=== PATIENT | male | born 1975 | race Caucasian/White ===

== ENCOUNTER 2017-01-17 19:20 | Emergency (ER) | payer BC, MEDICAID, OTHER ==
[2017-01-17] MEDS ORDERED: Sodium Chloride 0.9% 10 ML Syringe FLUSH PRN (19:37)
[2017-01-17] MEDS ORDERED: Sodium Chloride 0.9% 1,000 ML IV ONE (19:37)
[2017-01-17] MEDS ORDERED: Morphine 4 MG/ML Syringe IVPUSH ONE (19:51)
[2017-01-17] MEDS ORDERED: Ondansetron 4 MG/2 ML SDV IVPUSH ONE (19:51)
[2017-01-17] MEDS ORDERED: Ketorolac 30 MG/ML SDV IVPUSH ONE (19:51)
[2017-01-17 20:04] LABS: CHLORIDE,CL 102 mmol/L (98-107); SODIUM,NA 140 mmol/L (136-145)
[2017-01-17] MEDS ORDERED: Iopamidol 612 MG/ML 100 ML Bottle IVPUSH ONE (20:50)
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
[2017-01-18 01:14] VITALS: BP 131/84
== END 2017-01-17 22:12 | disposition home or self-care (01) ==
LOC: LL.ED 19:20
DX: S50.11XA Contusion of right forearm, initial encounter (principal); Z79.899 Other long term (current) drug therapy; X58.XXXA Exposure to other specified factors, initial encounter
CPT/HCPCS: 36415; 70450; 71260; 72125; 73090; 74177; 80053; 85025; 96361; 96374; 96375; 99291; 99292; G0480; J1885; J2270; J2405; J7030; Q9967

== ENCOUNTER 2017-11-16 07:25 | Emergency (ER) | payer MEDICAID ==
[2017-11-16 07:41] VITALS: BP 116/82
--- NOTE | 2017-11-16 07:41 | EDM.PDOC ---
ED HPI GENERAL MEDICAL PROBLEM - General Chief Complaint: Back Pain or Injury Stated Complaint: fall Time Seen by Provider: 11/16/17 07:35 Source of Information: Reports: Patient, Family (Mother), Old Records ([facility] chart/EMR) History Limitations: Reports: No Limitations - History of Present Illness INITIAL COMMENTS - FREE TEXT/NARRATIVE: The patient was brought to the emergency room via private automobile by his mother for evaluation of exacerbation of his chronic low back pain, which is mostly present in the lower lumbar and upper sacral region. He was at his niece' s home when he slipped on the ice at about 08:00 a.m. this morning landing on his lower back with no history of head injury, loss of consciousness, change in mental status, paresthesias, neurological deficits, neck pain, or other complaints or injuries. He has not taken any medications or performed any treatment to this point. The patient denies any chest pain/pressure, heart flutter, dizziness, orthostasis, orthopnea, diaphoresis, paresthesias, recent decreased exercise tolerance, or any other anginal-type symptoms. No recent history of abdominal pain, heartburn, nausea, diarrhea, melena, gross hematochezia, or any food intolerance, including fatty foods, etc.. The patient also denies any recent fever, cough, wheezing, dyspnea, etc.. Patient did take his medications this morning. Onset: Today, Sudden, Gradual Onset Date: 11/16/17 Onset Time: 08:00 Duration: Chronic Location: Reports: Back. Denies: Head, Face, Neck, Chest, Abdomen, Pelvis, Upper Extremity, Left, Upper Extremity, Right, Lower Extremity, Left Quality: Reports: Same as Previous Episode, Sharp, Stabbing Severity: Moderate Improves with: Reports: Rest Worsens with: Reports: Movement Context: Reports: Trauma (As above) Associated Symptoms: Denies: Confusion, Chest Pain, Cough, Diaphoresis, Fever/ Chills, Headaches, Loss of Appetite, Malaise, Nausea/Vomiting, Shortness of Breath, Syncope, Weakness Treatments BEEF TRIMMER: Reports: Other (see below) (None) Lower Back Pain Score (Numeric/FACES): 7 - Related Data Allergies Allergy/AdvReac Type Severity Reaction Status Date / Time No Known Allergies Allergy Verified 11/16/17 07:30 Home Meds: Home Meds Escitalopram Oxalate 10 mg PO DAILY 11/16/17 [History] Meloxicam 15 mg PO DAILY 11/16/17 [History] Multivitamin [Multivitamins] 1 cap PO DAILY 11/16/17 [History] lamoTRIgine [Lamotrigine] 100 mg PO BID 11/16/17 [History] Past Medical History HEENT History: Reports: Allergic Rhinitis. Denies: Hard of Hearing, Impaired Vision, Retinal Detachment Cardiovascular History: Reports: Arrhythmia, Other (See Below) Other Cardiovascular History: Complete right bundle branch block, PVCs Respiratory History: Reports: Sleep Apnea, Other (See Below) Other Respiratory History: Moderate obstructive sleep apnea with patient not using CPAP Gastrointestinal History: Reports: Gastritis, GERD Musculoskeletal History: Reports: Back Pain, Chronic, Fracture, Neck Pain, Chronic, Osteoarthritis, Other (See Below) Other Musculoskeletal History: C5-C6 fracture in about June 2013 with questionable right radial styloid fracture on 03/19/08 Psychiatric History: Reports: ADD, ADHD, Addiction, Anxiety, Bipolar, Depression , Other (See Below) Other Psychiatric History: Previous history of alcohol abuse as below with additional possible narcotic overuse - Past Surgical History Neurological Surgical History: Reports: C-Spine, Spinal Fusion, Other (See Below ). Denies: Lumbar Spine, Vertebroplasty Other Neurological Surgeries/Procedures: C5-C6 fixation in about June 2013 Musculoskeletal Surgical History: Reports: Arthroscopic Procedure, Shoulder Surgery, Other (See Below) Other Musculoskeletal Surgeries/Procedures:: 3 left shoulder arthroscopic surgeries with last surgery in about 2010 - Past Imaging History Past Imaging History: Reports: Bone Scan (06/25/11), CAT Scan (Last CT of the brain on 07/03/10 with previous evaluation on 04/05/09), MRI (Last MRI of the C- spine on 05/16/13 and the lumbar spine on 08/27/10), Sleep Study (12/02/11), Stress Testing (Cardiolite stress test on 07/12/14) Social & Family History - Family History Cardiac: Reports: CAD, GA, Other (See Below) Other Cardiac Family History: Father with history of recurrent MIs since his 40s with fatal GA in his 60s. Paternal uncle with fatal GA in his 40s. Another paternal uncle with an GA. Maternal grandfather with history of fatal GA in his 60s with additional history of CABG. 2 maternal uncles with fatal GA in their 60s. - Tobacco Use Smoking Status *Q: Current Every Day Smoker Tobacco Use Within Last Twelve Months: Cigarettes Years of Tobacco use: 26 Packs/Tins Daily: 0.7 (Previous maximum use of 23 packs per day with patient started smoking at about age 16) Used Tobacco, but Quit: Yes Smoking Cessation Information Provided To Patient: Yes Second Hand Smoke Exposure: No Second Hand Smoke Education Provided: No - Alcohol Use Alcohol Use History: Yes Days Per Week of Alcohol Use: 0 (Previous history of alcohol abuse with no apparent treatment) Number of Drinks Per Day: 3 (Usually beer every 2 months) Total Drinks Per Week: 0 Alcohol Use in Last Twelve Months: Yes Alcohol Use Frequency: Rarely, Socially - Recreational Drug Use Recreational Drug Use: No Drug Use in Last 12 Months: No - Living Situation & Occupation Living situation: Reports: (Although divorce proceedings are currently in effect) 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 ED EXAM,LOWER BACK PAIN/INJURY - Physical Exam Exam: See Below Exam Limited By: No Limitations General Appearance: Alert, WD/WN, No Apparent Distress, Anxious (Moderate) Head: Atraumatic, Normocephalic. No: Facial Swelling, Facial Tenderness, Sinus Tenderness Neck: Normal Inspection, Supple, Non-Tender, Full Range of Motion. No: Lymphadenopathy (L), Lymphadenopathy (R), Thyromegaly Respiratory/Chest: No Respiratory Distress, Lungs Clear, Normal Breath Sounds, No Accessory Muscle Use, Chest Non-Tender. No: Pleural Rub, Retractions Cardiovascular: Normal Peripheral Pulses, Regular Rate, Rhythm, No Edema, No Gallop, No JVD, No Murmur, No Rub. No: Gallop/S3, Gallop/S4, Friction Rub GI/Abdominal: Normal Bowel Sounds, Soft, Non-Tender, No Organomegaly, No Distention, No Abnormal Bruit, No Mass, Pelvis Stable. No: Guarding (Male) Exam: Deferred Rectal (Males) Exam: Deferred Back Exam: Decreased Range of Motion (Mild secondary discomfort), Muscle Spasm ( Mild lower lumbar upper sacral left-sided), Paraspinal Tenderness (Mild to moderate left lower and upper sacral). No: CVA Tenderness (L), CVA Tenderness ( R), Vertebral Tenderness Extremities: Normal Inspection, Normal Range of Motion, Non-Tender, No Pedal Edema, Normal Capillary Refill Neurological: Alert, Normal Mood/Affect, Normal Dorsiflexion, CN II-XII Intact, Normal Plantar Flexion, Normal Gait, Normal Reflexes, No Motor/Sensory Deficits , Oriented x 3 Psychiatric: Anxious (Moderate with patient becoming combative and confrontational at the end of ER visit as below), Depressed Mood (Adequate eye contact) Skin Exam: Warm, Dry, Intact, Normal Color, No Rash. No: Diaphoretic Lymphatic: No Adenopathy Course - Vital Signs Last Recorded V/S: Last Vital Signs Temp 36.4 C 11/16/17 07:25 Pulse 102 H 11/16/17 07:25 Resp 18 11/16/17 07:25 BP 116/82 11/16/17 07:25 Pulse Ox 95 11/16/17 07:25 Vital Signs - 24 hr 11/16/17 07:25 Temperature [ 36.4 C Oral] Pulse, 102 H Peripheral [ Right Pulse Oximetry] Respiratory 18 Rate Blood Pressure 116/82 [Right Upper Arm] O2 Sat by Pulse 95 Oximetry - Orders/Labs/Meds Orders: Active Orders 24 hr Category Date Time Status Lumbar Spine 2 or 3V [CR] Stat Exams 11/16/17 07:41 Taken Obtain Past Medical Record [OM.PC] Routine Oth 11/16/17 07:41 Active Labs: None Meds: Medications Discontinued Medications Generic Name Dose Route Start Last Admin Trade Name Mauricioq PRN Reason Stop Dose Admin Ketorolac Tromethamine 60 mg 11/16/17 08:01 Toradol IM 11/16/17 08:02 ONETIME ONE Not given secondary to patient leaving AMA as below - Radiology Interpretation Free Text/Narrative:: X-rays of the lumbar spine, 3 views, shows evidence of mild decreased lordosis of the lumbar spine with additional mild to moderate osteoarthritic changes including spur formation, however no acute fracture or dislocation, etc. Departure - Departure Time of Disposition: 08:10 Disposition: Against Medical Advice 07 Condition: Good Clinical Impression: Bipolar 1 disorder, Tobacco abuse counseling Low back pain Qualifiers: Chronicity: acute Back pain laterality: left Sciatica presence: without sciatica Qualified Code(s): M54.5 - Low back pain Osteoarthritis Qualifiers: Osteoarthritis location: multiple joints Osteoarthritis type: primary Qualified Code(s): M15.0 - Primary generalized (osteo)arthritis - Discharge Information Instructions: Muscle Strain, [id number], Back Pain, Adult, [id number] Referrals: Key Ye, ASSISTANT PRODUCER [Primary Care Provider] - Forms: ED Department Discharge Additional Instructions: 1. Follow up with your regular provider in 10-14 days as needed, if symptoms persist. 2. BenGay or equivalent, heating pad, and/or ice packs as directed. 3. Tylenol 650 mg by mouth every 4 hours and/or OTC ibuprofen 2-3 tabs by mouth every 6 hours with food as directed./needed. Next dose of ibuprofen in 6 hours as needed secondary to medications given in the emergency room. 4. Stop all tobacco use KAVON as directed/per provided information and consider contacting Quit LIne, etc.. - Problem List & Annotations (1) Low back pain SNOMED Code(s): 456798534 Code(s): M54.5 - LOW BACK PAIN Status: Acute Priority: High Current Visit: Yes Onset Date: 11/16/17 Annotation/Comment:: Exacerbation of his chronic low back pain as above. Toradol initially ordered as above, however patient left AMA prior to administration of this medication. Note that discharge instructions were discussed with the patient by me prior to his episode of confrontation as below, however he did leave without receiving the written copy of these instructions. Qualifiers: Chronicity: acute Back pain laterality: left Sciatica presence: without sciatica Qualified Code(s): M54.5 - Low back pain (2) Bipolar 1 disorder SNOMED Code(s): 457897727 Code(s): F31.9 - BIPOLAR DISORDER, UNSPECIFIED Status: Chronic Priority: Medium Current Visit: Yes Annotation/Comment:: Moderate control by today's evaluation. Patient was very combative and confrontational when I was dictating his previous history concerning his previous alcohol abuse, narcotic use, etc., which was obtained from his previous medical records. He did leave the emergency room AMA. Continue close follow-up by his regular provider Note additional history of ADHD (3) Osteoarthritis SNOMED Code(s): 792520052 Code(s): M19.90 - UNSPECIFIED OSTEOARTHRITIS, UNSPECIFIED SITE Status: Chronic Priority: Medium Current Visit: Yes Annotation/Comment:: His arthritis is otherwise stable with no history of other injury, etc. Qualifiers: Osteoarthritis location: multiple joints Osteoarthritis type: primary Qualified Code(s): M15.0 - Primary generalized (osteo)arthritis (4) Tobacco abuse counseling SNOMED Code(s): 819577183, [id number] Code(s): Z71.6 - TOBACCO ABUSE COUNSELING Status: Chronic Priority: Medium Current Visit: Yes Annotation/Comment:: Tobacco cessation strongly encouraged with the patient apparently already having tobacco cessation information at home. - Problem List Review Problem List Initiated/Reviewed/Updated: Yes - My Orders Last 24 Hours: My Active Orders 11/16/17 07:41 Lumbar Spine 2 or 3V [CR] Stat Obtain Past Medical Record [OM.PC] Routine - Assessment/Plan Last 24 Hours: My Active Orders 11/16/17 07:41 Lumbar Spine 2 or 3V [CR] Stat Obtain Past Medical Record [OM.PC] Routine Assessment:: As above Plan: As above. Extensive precautions were given to the patient, who is in agreement with the treatment plan. Patient did leave A as above
[2017-11-16] MEDS ORDERED: Ketorolac 60 MG/2 ML SDV IM ONE (08:01)
== END 2017-11-16 08:10 | disposition left against medical advice (07) ==
LOC: MERGE 07:25 → LL.ED 07:25 → SUPCPDRO 07:25 → LL.ED 08:10
DX: M54.5 Low back pain (principal); G89.29 Other chronic pain; F31.9 Bipolar disorder, unspecified; M15.0 Primary generalized (osteo)arthritis; F17.210 Nicotine dependence, cigarettes, uncomplicated; Z71.6 Tobacco abuse counseling; Z79.899 Other long term (current) drug therapy
CPT/HCPCS: 72100; 99284

== ENCOUNTER 2018-10-12 19:44 | Emergency (ER) | payer MEDICAID ==
[2018-10-12 19:51] VITALS: BP 132/71
--- NOTE | 2018-10-12 20:34 | EDM.PDOC ---
ED HPI GENERAL MEDICAL PROBLEM - General Chief Complaint: General Stated Complaint: LEFT FINGER LACERATION Time Seen by Provider: 10/12/18 20:19 Source of Information: Reports: Patient, Family History Limitations: Reports: Other (Patient has history of bipolar 1 disorder/ ADHD as well as drug/ETOH use. Conversationally evasive, somewhat confrontational communication style. [place] to be unreliable for history. ) - History of Present Illness INITIAL COMMENTS - FREE TEXT/NARRATIVE: Patient brought in by sister for evaluation of laceration of left 4th finger knuckle. Apparently cut it on glass per sister. Patient refused to tell us how it was injured. He is unhappy that he was "forced" to come to the ER to be seen and says that he could have fixed it at home himself. Says that Tetanus is UTD , this was verified by nursing staff. Denies loss of function/numbness/ tingling in affected finger. Denies other injuries. Verbalized multiple times that he wanted to go. Did sit a while and soak injured finger in Betadine. Left Finger-Ring Pain Score (Numeric/FACES): 6 - Related Data Allergies Allergy/AdvReac Type Severity Reaction Status Date / Time No Known Allergies Allergy Verified 10/12/18 19:52 Home Meds: Home Meds . 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 Cardiovascular History: Reports: Arrhythmia, Other (See Below) Other Cardiovascular History: Complete right bundle branch block, PVCs Respiratory History: Reports: Other (See Below), Sleep Apnea Other Respiratory History: Moderate obstructive sleep apnea with patient not using CPAP Gastrointestinal History: Reports: Gastritis, GERD Musculoskeletal History: Reports: Back Pain, Chronic, Fracture, Neck Pain, Chronic, Other (See Below), Osteoarthritis Other Musculoskeletal History: C5-C6 fracture in about June 2013 with questionable right radial styloid fracture on 03/19/08 Neurological History: Reports: Brain Injury, Head Trauma Psychiatric History: Reports: Addiction, ADD, ADHD, Anxiety, Bipolar, Depression , Other (See Below) Other Psychiatric History: Previous history of alcohol abuse as below with additional possible narcotic overuse - Past Surgical History Neurological Surgical History: Reports: C-Spine, Other (See Below), Spinal Fusion Musculoskeletal Surgical History: Reports: Arthroscopic Procedure, Other (See Below), Shoulder Surgery - Past Imaging History Past Imaging History: Reports: Bone Scan, CAT Scan, MRI, Stress Testing, Sleep Study Social & Family History - Family History Cardiac: Reports: CAD, NM, Other (See Below) Other Cardiac Family History: Father with history of recurrent MIs since his 40s with fatal NM in his 60s. Paternal uncle with fatal NM in his 40s. Another paternal uncle with an NM. Maternal grandfather with history of fatal NM in his 60s with additional history of CABG. 2 maternal uncles with fatal NM in their 60s. - Tobacco Use Smoking Status *Q: Current Every Day Smoker Smoking Cessation Information Provided To Patient: Patient Refused - Alcohol Use Alcohol Use Comment: Patient has said that he previously used ETOH but was not actively drinking when seen on previous ER visits. Smelled like he may have had ETOH tonight. - Recreational Drug Use Recreational Drug Use Comment: History of drug abuse. Denies any active use at this time. Unreliable for accurate history. 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 ED EXAM, GENERAL - Physical Exam Exam: See Below Exam Limited By: Uncooperative (patient restless. Wanted to leave. Did not wish to sit still for any prolonged period of time. Intermittently had mild combative quality to interactions with staff and body language/word choices.) General Appearance: Alert, No Apparent Distress Eye Exam: Bilateral Eye: EOMI Nose: No: Nasal Deformity, Nasal Swelling, Nasal Drainage Throat/Mouth: Normal Voice, No Airway Compromise Head: Atraumatic, Normocephalic Neck: Supple Respiratory/Chest: No Respiratory Distress Extremities: Normal Capillary Refill, Other (U shaped laceration over middle IP joint 4th digit on left hand. Tendon function intact. No bleeding/swelling/ deformity. Other fingers unremarkable. ) Neurological: Alert, Normal Gait, No Motor/Sensory Deficits Psychiatric: Other (agitated, restless) Skin Exam: Warm, Dry, Normal Color ED GENERAL MEDICAL PROCEDURES - Laceration/Wound Repair Left Dorsal Digit - 4th (Ring) Lac/wound length in cm: 2.5 Appearance: Subcutaneous, Clean Distal NVT: Neuro & Vascular Intact, No Tendon Injury Anesthetic Type: Other (patient refused) Skin Prep: Providone-Iodine (Betadine) Exploration/Debridement/Repair: Wound Explored, In a Bloodless Field, Explored to Base, No Foreign Material Found Closed with: Sutures Suture Size: 4-0 # of Sutures: 5 Suture Type: Interrupted Sterile Dressing Applied: Nurse Tetanus Status Addressed: Yes Complications: No Course - Vital Signs Last Recorded V/S: Last Vital Signs Temp 35.6 C 10/12/18 19:44 Pulse 61 10/12/18 19:44 Resp 16 10/12/18 19:44 BP 132/71 10/12/18 19:44 Pulse Ox 100 10/12/18 19:44 - Orders/Labs/Meds Meds: Medications Discontinued Medications Generic Name Dose Route Start Last Admin Trade Name Alexandra PRN Reason Stop Dose Admin Lidocaine HCl 5 ml 10/12/18 20:20 10/12/18 20:38 Xylocaine-Mpf 1% INJECT 10/12/18 20:21 Not Given ONETIME ONE Neomycin/Polymyxin/Bacitracin 1 each 10/12/18 20:20 10/12/18 20:38 Triple Antibiotic Oint TOP 10/12/18 20:21 1 each ONETIME ONE Administration - Re-Assessments/Exams Free Text/Narrative Re-Assessment/Exam: 10/12/18 20:52 Finger laceration repaired in a somewhat rushed fashion given patient's behavior and desire to leave. He did refuse local anesthesia. Commented multiple times that he could have done this himself at home. Staff able to improve patient's demeanor by attempting to engage him in conversation and provide positive topics of discussion. Antibiotic ointment and bandage applied. Patient not interested in instructions/precautions. Discharged from hospital. Patient's sister was with him during treatment. Departure - Departure Time of Disposition: 20:32 Disposition: Home, Self-Care 01 Condition: Good Clinical Impression: Finger laceration Qualifiers: Encounter type: initial encounter Finger: ring finger Damage to nail status: without damage Foreign body presence: without foreign body Laterality: left Qualified Code(s): S61.215A - Laceration without foreign body of left ring finger without damage to nail, initial encounter - Discharge Information *PRESCRIPTION DRUG MONITORING PROGRAM REVIEWED*: Not Applicable *COPY OF PRESCRIPTION DRUG MONITORING REPORT IN PATIENT LAURITA: Not Applicable Instructions: Sutured Wound Care, [id number] Referrals: Key Ye, REFRACTORY BRICKLAYER [Primary Care Provider] - Forms: ED Department Discharge Additional Instructions: Have sutures removed in 10-12 days. Watch for infection. Keep wound clean while it is healing. Apply antibiotic ointment twice a day to laceration. If you have any signs of infection please follow up for recheck.
[2018-10-12] MEDS: Bacitracin/Neomycin/Polymyxin B Oint 0.9 GM U/D Packet TOP ONE (20:38)
== END 2018-10-12 20:40 | disposition home or self-care (01) ==
LOC: LL.ED 19:44
DX: S61.215A Laceration without foreign body of left ring finger without damage to nail, initial encounter (principal); F17.210 Nicotine dependence, cigarettes, uncomplicated; W25.XXXA Contact with sharp glass, initial encounter
CPT/HCPCS: 12001; 99283

== ENCOUNTER 2018-10-29 12:28 | Emergency (ER) | payer MEDICAID ==
[2018-10-29 12:36] VITALS: BP 145/86
--- NOTE | 2018-10-29 13:10 | EDM.PDOC ---
ED HPI GENERAL MEDICAL PROBLEM - General Chief Complaint: Upper Extremity Injury/Pain Stated Complaint: ring finger left hand injury Time Seen by Provider: 10/29/18 12:35 - History of Present Illness INITIAL COMMENTS - FREE TEXT/NARRATIVE: Patient is seen for suture removal Onset: Today Duration: Improving Location: Reports: Upper Extremity, Left Severity: Mild Improves with: Reports: None Worsens with: Reports: None Associated Symptoms: Reports: No Other Symptoms Treatments ASPHALT ENGINEER: Reports: NSAIDS Left Hand Pain Score (Numeric/FACES): 8 - Related Data Allergies Allergy/AdvReac Type Severity Reaction Status Date / Time No Known Allergies Allergy Verified 10/29/18 12:29 Home Meds: Home Meds QUEtiapine Fumarate [Quetiapine Fumarate] 100 mg PO BEDTIME PRN 10/29/18 [ History] hydrOXYzine pamoate [Hydroxyzine Pamoate] 50 mg PO ASDIRECTED 10/29/18 [History] Past Medical History HEENT History: Reports: Allergic Rhinitis, Other (See Below) Other HEENT History: 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 Cardiovascular History: Reports: Arrhythmia, Other (See Below) Other Cardiovascular History: Complete right bundle branch block, PVCs Respiratory History: Reports: Other (See Below), Sleep Apnea Other Respiratory History: Moderate obstructive sleep apnea with patient not using CPAP Gastrointestinal History: Reports: Gastritis, GERD Musculoskeletal History: Reports: Back Pain, Chronic, Fracture, Neck Pain, Chronic, Other (See Below), Osteoarthritis Other Musculoskeletal History: C5-C6 fracture in about June 2013 with questionable right radial styloid fracture on 03/19/08 Neurological History: Reports: Brain Injury, Head Trauma Psychiatric History: Reports: Addiction, ADD, ADHD, Anxiety, Bipolar, Depression , Other (See Below) Other Psychiatric History: Previous history of alcohol abuse as below with additional possible narcotic overuse - Past Surgical History Neurological Surgical History: Reports: C-Spine, Other (See Below), Spinal Fusion Musculoskeletal Surgical History: Reports: Arthroscopic Procedure, Other (See Below), Shoulder Surgery - Past Imaging History Past Imaging History: Reports: Bone Scan, CAT Scan, MRI, Stress Testing, Sleep Study Social & Family History - Family History Cardiac: Reports: CAD, VA, Other (See Below) Other Cardiac Family History: Father with history of recurrent MIs since his 40s with fatal VA in his 60s. Paternal uncle with fatal VA in his 40s. Another paternal uncle with an VA. Maternal grandfather with history of fatal VA in his 60s with additional history of CABG. 2 maternal uncles with fatal VA in their 60s. 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[employer]) Review of Systems - Review of Systems Review Of Systems: See Below Constitutional: Reports: No Symptoms Eyes: Reports: No Symptoms Ears: Reports: No Symptoms Nose: Reports: No Symptoms Mouth/Throat: Reports: No Symptoms Respiratory: Reports: No Symptoms Cardiovascular: Reports: No Symptoms GI/Abdominal: Reports: No Symptoms Genitourinary: Reports: No Symptoms Musculoskeletal: Reports: No Symptoms Skin: Reports: No Symptoms Neurological: Reports: No Symptoms Psychiatric: Reports: No Symptoms ED EXAM, GENERAL - Physical Exam Exam: See Below Exam Limited By: No Limitations General Appearance: Alert, WD/WN, No Apparent Distress Ears: Normal External Exam, Normal Canal, Hearing Grossly Normal, Normal TMs Nose: Normal Inspection, Normal Mucosa, No Blood Head: Atraumatic, Normocephalic Respiratory/Chest: No Respiratory Distress, Lungs Clear, Normal Breath Sounds, No Accessory Muscle Use, Chest Non-Tender Cardiovascular: Normal Peripheral Pulses, Regular Rate, Rhythm, No Edema, No Gallop, No JVD, No Murmur, No Rub GI/Abdominal: Normal Bowel Sounds, Soft, Non-Tender, No Organomegaly, No Distention, No Abnormal Bruit, No Mass (Male) Exam: Deferred Rectal (Males) Exam: Deferred Back Exam: Normal Inspection, Full Range of Motion, NT Extremities: Other (Left hand index finger sutured some swelling no signs of infection) Course - Vital Signs Last Recorded V/S: Last Vital Signs Temp 98.4 F 10/29/18 12:35 Pulse 91 10/29/18 12:35 Resp 18 10/29/18 12:35 BP 145/86 H 10/29/18 12:35 Pulse Ox 98 10/29/18 12:35 Departure - Departure Time of Disposition: 13:30 Disposition: Home, Self-Care 01 Clinical Impression: Encounter for removal of sutures - Discharge Information *PRESCRIPTION DRUG MONITORING PROGRAM REVIEWED*: No *COPY OF PRESCRIPTION DRUG MONITORING REPORT IN PATIENT LAURITA: No Referrals: Key Ye, MACHINE GRAINER [Primary Care Provider] - Forms: ED Department Discharge Care Plan Goals: Suture removal of dictation is a central
== END 2018-10-29 13:30 | disposition home or self-care (01) ==
LOC: LL.ED 12:28
DX: S61.215D Laceration without foreign body of left ring finger without damage to nail, subsequent encounter (principal); W25.XXXD Contact with sharp glass, subsequent encounter

== ENCOUNTER 2018-11-16 20:37 | Emergency (ER) | payer MEDICAID ==
[2018-11-16 20:49] VITALS: BP 146/85
[2018-11-16] MEDS ORDERED: Sodium Chloride 0.9% 10 ML Syringe FLUSH PRN (21:24)
[2018-11-16] MEDS ORDERED: Sodium Chloride 0.9% 1,000 ML IV ONE ×2 (21:24→22:40)
[2018-11-16] MEDS ORDERED: Diazepam 5 MG Tab PO ONE (21:26)
[2018-11-16] MEDS ORDERED: Loperamide 2 MG Tab PO ONE (21:27)
[2018-11-16 21:31] LABS: CHLORIDE,CL 103 mmol/L (98-107); SODIUM,NA 139 mmol/L (136-145)
--- NOTE | 2018-11-16 22:33 | EDM.PDOC ---
ED HPI GENERAL MEDICAL PROBLEM - General Chief Complaint: General Stated Complaint: chills,sweating muscle m Time Seen by Provider: 11/16/18 20:48 Source of Information: Reports: Patient, Family History Limitations: Reports: Uncooperative - History of Present Illness INITIAL COMMENTS - FREE TEXT/NARRATIVE: Patient brought in by his sister for evaluation. Vague complaints of several week history of loose stools/chills. Has chronic cough, heavy smoker. No fevers. No obvious URI complaints. Says he is just not feeling well. Observed to get easily angry and agitated when asked questions, rather uncooperative during ROS. Several times staff members were a bit fearful for their safety/felt threatened as it appeared that the patient was having a hard time getting his anger in control. Patient has been seen here before and similar issues have been encountered in the past. Has history of bipolar diagnosis. Suspect additional behavior/ personality disorders. 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 When patient left to get chest xray, sister shared that patient has quite ETOH cold turkey 4 days ago and has been going through withdrawal. Does not want to go to detox/treatment. She feels that this is the main issue. He has not been eating or drinking well given the sweats and withdrawal discomfort he has been feeling. No seizure activity. She states that either herself or one other person/friend is always around patient currently and he at no time is alone. 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 Cardiovascular History: Reports: Arrhythmia, Other (See Below) Other Cardiovascular History: Complete right bundle branch block, PVCs Respiratory History: Reports: Other (See Below), Sleep Apnea Other Respiratory History: Moderate obstructive sleep apnea with patient not using CPAP Gastrointestinal History: Reports: Gastritis, GERD Musculoskeletal History: Reports: Back Pain, Chronic, Fracture, Neck Pain, Chronic, Other (See Below), Osteoarthritis Other Musculoskeletal History: C5-C6 fracture in about June 2013 with questionable right radial styloid fracture on 03/19/08 Neurological History: Reports: Brain Injury, Head Trauma Psychiatric History: Reports: ADD, ADHD, Addiction, Aggressive/Hostile Behaviors , Anxiety, Bipolar, Depression, Other (See Below) Other Psychiatric History: Previous history of alcohol abuse as below with additional possible narcotic overuse - Past Surgical History Neurological Surgical History: Reports: C-Spine, Other (See Below), Spinal Fusion Musculoskeletal Surgical History: Reports: Arthroscopic Procedure, Other (See Below), Shoulder Surgery - Past Imaging History Past Imaging History: Reports: Bone Scan, CAT Scan, MRI, Stress Testing, Sleep Study Social & Family History - Family History Cardiac: Reports: CAD, MT, Other (See Below) Other Cardiac Family History: Father with history of recurrent MIs since his 40s with fatal MT in his 60s. Paternal uncle with fatal MT in his 40s. Another paternal uncle with an MT. Maternal grandfather with history of fatal MT in his 60s with additional history of CABG. 2 maternal uncles with fatal MT in their 60s. 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 Denies: Fever, Weakness, Night Sweats HEENT: Reports: No Symptoms Respiratory: Reports: Cough (cough is chronic/unchanged). Denies: Shortness of Breath, Wheezing, Pleuritic Chest Pain, Hemoptysis Cardiovascular: Reports: No Symptoms. Denies: Chest Pain GI/Abdominal: Reports: Diarrhea, Nausea. Denies: Bloody Stool, Vomiting : Reports: No Symptoms Musculoskeletal: Reports: Neck Pain (chronic ), Back Pain (chronic) Skin: Reports: No Symptoms Psychiatric: Reports: Agitation, Cravings (recently quit ETOH), Mood Lability. Denies: Hallucinations, Homicidal Ideation, Suicidal Ideation ED EXAM, GENERAL - Physical Exam Exam: See Below Exam Limited By: Uncooperative General Appearance: Alert, WD/WN, Anxious Eye Exam: Bilateral Eye: EOMI, PERRL Ears: Normal External Exam, Normal Canal, Hearing Grossly Normal Nose: No: Nasal Deformity, Nasal Swelling, Nasal Drainage Throat/Mouth: Normal Inspection, Normal Lips, Normal Voice, No Airway Compromise Head: Atraumatic, Normocephalic Neck: Normal Inspection, Supple, Non-Tender, Full Range of Motion Respiratory/Chest: No Respiratory Distress, Lungs Clear, Normal Breath Sounds, No Accessory Muscle Use, Chest Non-Tender Cardiovascular: Regular Rate, Rhythm, No Edema, No Murmur Peripheral Pulses: 2+: Radial (L), Radial (R) GI/Abdominal: Normal Bowel Sounds, Soft, Non-Tender, No Distention (Male) Exam: Deferred Rectal (Males) Exam: Deferred Back Exam: No: CVA Tenderness (L), CVA Tenderness (R) Extremities: Normal Inspection, Normal Range of Motion, Non-Tender, No Pedal Edema, Slow Capillary Refill Neurological: Alert, Oriented, No Motor/Sensory Deficits Psychiatric: Anxious, Other (appeared stressed, intermittently would get angry, squeeze fists, then make himself relax) Skin Exam: Warm, Dry, Intact, Normal Color Course - Vital Signs Last Recorded V/S: Last Vital Signs Temp 36.4 C 11/16/18 20:48 Pulse 86 11/16/18 20:48 Resp 18 11/16/18 20:48 BP 146/85 H 11/16/18 20:48 Pulse Ox 98 11/16/18 20:48 - Orders/Labs/Meds Orders: Active Orders 24 hr Category Date Time Status Chest 2V [CR] Stat Exams 11/16/18 20:58 Taken Sodium Chloride 0.9% [Saline Flush] Med 11/16/18 21:24 Active 10 ml FLUSH ASDIRECTED PRN Saline Lock Insert [OM.PC] Routine Oth 11/16/18 21:24 Ordered Medication Orders Sodium Chloride (Saline Flush) 10 ml FLUSH ASDIRECTED PRN PRN Reason: Keep Vein Open Labs: Laboratory Tests 11/16/18 11/16/18 11/16/18 Range/Units 21:10 21:10 21:15 WBC 14.2 H (4.0-10.2) K/uL RBC 5.06 (4.33-5.41) M/uL Hgb 15.4 (13.1-16.8) g/dL Hct 45.7 (39.0-49.0) % MCV 90.3 (84.0-98.0) fL MCH 30.4 (28.2-33.3) pg MCHC 33.7 (31.7-36.0) g/dL RDW 14.1 (11.2-14.1) % Plt Count 275 (150-350) K/uL Neut % (Auto) 62.2 (45.0-80.0) % Lymph % (Auto) 27.3 (10.0-50.0) % [place] % (Auto) 8.0 (2.0-14.0) % Eos % (Auto) 1.9 (0.0-5.0) % Baso % (Auto) 0.6 (0.0-2.0) % Neut # (Auto) 8.84 H (1.40-7.00) K/uL Lymph # (Auto) 3.88 H (0.50-3.50) K/uL [place] # (Auto) 1.13 H (0.00-1.00) K/uL Eos # (Auto) 0.27 (0.00-0.50) K/uL Baso # (Auto) 0.08 (0.00-0.20) K/uL Sodium 139 (136-145) mmol/L Potassium 3.6 (3.5-5.1) mmol/L Chloride 103 (98-107) mmol/L Carbon Dioxide 26.6 (21.0-32.0) mmol/L BUN 20 H (7-18) mg/dL Creatinine 0.94 (0.51-1.17) mg/dL Est Cr Clr Drug Dosing TNP Estimated GFR (MDRD) > 60 mL/min Glucose 108 H (74-106) mg/dL Calcium 9.2 (8.5-10.1) mg/dL Magnesium 1.9 (1.8-2.4) mg/dL Specimen Type Urine Color Urine Appearance Urine pH (5.0-9.0) Ur Specific [place] (1.005-1.030) Urine Protein (NEGATIVE) mg/dL Urine Glucose (UA) (NEGATIVE) mg/dL Urine Ketones (NEGATIVE) mg/dL Urine Occult Blood (NEGATIVE) Urine Nitrite (NEGATIVE) Urine Bilirubin (NEGATIVE) Urine Urobilinogen (0.2-1.0) E.U./dL Ur Leukocyte Esterase (NEGATIVE) Urine RBC /HPF Urine WBC /HPF Ur Epithelial Cells /LPF Urine Bacteria (NONE TO FEW) /HPF Urine Opiates Screen (NEGATIVE) Urine Methadone Screen (NEGATIVE) U Acetaminophen Screen (NEGATIVE) Ur Barbiturates Screen (NEGATIVE) Ur Tricyclics Screen (NEGATIVE) Ur Phencyclidine Scrn (NEGATIVE) Ur Amphetamine Screen (NEGATIVE) U Methamphetamines Scrn (NEGATIVE) U Benzodiazepines Scrn (NEGATIVE) U Cocaine Metab Screen (NEGATIVE) U Marijuana (THC) Screen (NEGATIVE) 11/16/18 11/16/18 Range/Units 21:27 21:28 WBC (4.0-10.2) K/uL RBC (4.33-5.41) M/uL Hgb (13.1-16.8) g/dL Hct (39.0-49.0) % MCV (84.0-98.0) fL MCH (28.2-33.3) pg MCHC (31.7-36.0) g/dL RDW (11.2-14.1) % Plt Count (150-350) K/uL Neut % (Auto) (45.0-80.0) % Lymph % (Auto) (10.0-50.0) % [place] % (Auto) (2.0-14.0) % Eos % (Auto) (0.0-5.0) % Baso % (Auto) (0.0-2.0) % Neut # (Auto) (1.40-7.00) K/uL Lymph # (Auto) (0.50-3.50) K/uL [place] # (Auto) (0.00-1.00) K/uL Eos # (Auto) (0.00-0.50) K/uL Baso # (Auto) (0.00-0.20) K/uL Sodium (136-145) mmol/L Potassium (3.5-5.1) mmol/L Chloride (98-107) mmol/L Carbon Dioxide (21.0-32.0) mmol/L BUN (7-18) mg/dL Creatinine (0.51-1.17) mg/dL Est Cr Clr Drug Dosing Estimated GFR (MDRD) mL/min Glucose (74-106) mg/dL Calcium (8.5-10.1) mg/dL Magnesium (1.8-2.4) mg/dL Specimen Type Urinblad Urine Color Yellow Urine Appearance Clear Urine pH 7.0 (5.0-9.0) Ur Specific [place] 1.020 (1.005-1.030) Urine Protein Negative (NEGATIVE) mg/dL Urine Glucose (UA) Negative (NEGATIVE) mg/dL Urine Ketones Negative (NEGATIVE) mg/dL Urine Occult Blood Negative (NEGATIVE) Urine Nitrite Negative (NEGATIVE) Urine Bilirubin Negative (NEGATIVE) Urine Urobilinogen 0.2 (0.2-1.0) E.U./dL Ur Leukocyte Esterase Negative (NEGATIVE) Urine RBC 0-5 /HPF Urine WBC 0-5 /HPF Ur Epithelial Cells Rare /LPF Urine Bacteria Not seen (NONE TO FEW) /HPF Urine Opiates Screen Negative (NEGATIVE) Urine Methadone Screen Negative (NEGATIVE) U Acetaminophen Screen Negative (NEGATIVE) Ur Barbiturates Screen Negative (NEGATIVE) Ur Tricyclics Screen Negative (NEGATIVE) Ur Phencyclidine Scrn Negative (NEGATIVE) Ur Amphetamine Screen Negative (NEGATIVE) U Methamphetamines Scrn Negative (NEGATIVE) U Benzodiazepines Scrn Negative (NEGATIVE) U Cocaine Metab Screen Negative (NEGATIVE) U Marijuana (THC) Screen Positive H (NEGATIVE) Meds: Medications Generic Name Dose Route Start Last Admin Trade Name Freq PRN Reason Stop Dose Admin Sodium Chloride 10 ml 11/16/18 21:24 Saline Flush FLUSH ASDIRECTED PRN Keep Vein Open Discontinued Medications Generic Name Dose Route Start Last Admin Trade Name Freq PRN Reason Stop Dose Admin Diazepam 5 mg 11/16/18 21:26 11/16/18 21:34 Valium. PO 11/16/18 21:27 5 mg ONETIME ONE Administration Sodium Chloride 1,000 mls @ 999 mls/hr 11/16/18 21:24 11/16/18 21:34 Normal Saline IV 11/16/18 22:24 999 mls/hr .BOLUS ONE Administration Sodium Chloride 1,000 mls @ 999 mls/hr 11/16/18 22:40 11/16/18 22:47 Normal Saline IV 11/16/18 23:40 999 mls/hr .BOLUS ONE Administration Thiamine HCl 100 mg/ Sodium 101 mls @ 202 mls/hr 11/16/18 22:47 Chloride IV 11/16/18 22:48 ONETIME ONE Loperamide HCl 4 mg 11/16/18 21:27 11/16/18 22:33 Imodium Ad PO 11/16/18 21:28 Not Given ONETIME ONE - Radiology Interpretation Free Text/Narrative:: xray of chest did not appear to show any focal acute processes. - Re-Assessments/Exams Free Text/Narrative Re-Assessment/Exam: 11/16/18 22:40 CBC/Chem/UA/UDS performed. + THC. WBC elevated at 14. Suspect patient's complaints are related to ETOH withdrawal. He has had no seizures per patient/sister. He is not interested in placement at this time. Is supposedly on day 4-5 of quitting ETOH. His demeanor significantly improved when he was given IV fluids as he felt he was dehydrated and this would help him. Patient did have sluggish capillary refill on exam. He was willing to take PO valium with the understanding that this could help him with his agitation/sweats from ETOH withdrawal. Plan at this time is to attempt home detox. His sister has all of his meds and gives them to him as he reportedly "gets his meds all screwed up". She is willing to follow a Valium dosing/tapering recommendation. She says that he is being followed up by counselor and medical providers for his mental health and chronic back/neck issues. Free Text/Narrative Re-Assessment/Exam: 11/17/18 00:44 Patient is more cooperative, happier at this time. More relaxed. Has been eating/drinking while receiving IV fluids. Refuses Thiamine IV at this time however. Departure - Departure Time of Disposition: 00:48 Disposition: Home, Self-Care 01 Condition: Good Clinical Impression: Alcohol withdrawal Qualifiers: Complication of substance-induced condition: uncomplicated Qualified Code(s): F10.230 - Alcohol dependence with withdrawal, uncomplicated - Discharge Information *PRESCRIPTION DRUG MONITORING PROGRAM REVIEWED*: Not Applicable *COPY OF PRESCRIPTION DRUG MONITORING REPORT IN PATIENT LAURITA: Not Applicable Instructions: Alcohol Withdrawal, [id number] Referrals: PCP,None [Primary Care Provider] - Forms: ED Department Discharge Additional Instructions: To help you get through alcohol withdrawal take 1/2 of a tab of Valium every 6 hours tomorrow () Take 1/2 a tab every 8 hours on Wednesday and Wednesday. Take 1/2 every 12 hours on Wednesday, Wednesday, and Wednesday. Discontinue the Valium after that. Follow up with your regular doctor recommended next week. If you feel that you want to consider inpatient treatment, it may be possible to find placement for you. Return to the ER or you clinic as needed if you have problems. - My Orders Last 24 Hours: My Active Orders 11/16/18 20:58 Chest 2V [CR] Stat 11/16/18 21:24 Sodium Chloride 0.9% [Saline Flush] 10 ml FLUSH ASDIRECTED PRN Saline Lock Insert [OM.PC] Routine - Assessment/Plan Last 24 Hours: My Active Orders 11/16/18 20:58 Chest 2V [CR] Stat 11/16/18 21:24 Sodium Chloride 0.9% [Saline Flush] 10 ml FLUSH ASDIRECTED PRN Saline Lock Insert [OM.PC] Routine
[2018-11-16] MEDS ORDERED: Thiamine 100 MG in Sodium Chloride 0.9% 100 ML IV ONE (22:47)
== END 2018-11-17 00:30 | disposition home or self-care (01) ==
LOC: LL.ED 20:37
DX: F10.230 Alcohol dependence with withdrawal, uncomplicated (principal); F17.290 Nicotine dependence, other tobacco product, uncomplicated; K21.9 Gastro-esophageal reflux disease without esophagitis; Z79.899 Other long term (current) drug therapy
CPT/HCPCS: 36415; 71046; 80048; 80305-QW; 81001; 83735; 85025; 96360; 96361; 99285-25; A9270-GY; J7030